=== PATIENT | male | born 1980 | race Asian ===

== ENCOUNTER 2021-04-10 09:50 | Emergency (ER) | payer OTHER, BC | END 2021-04-10 11:52 | disposition home or self-care (01) | LOC: ERS 09:50 | DX: S16.1XXA Strain of muscle, fascia and tendon at neck level, initial encounter (principal); M25.532 Pain in left wrist; M62.838 Other muscle spasm; V89.2XXA Person injured in unspecified motor-vehicle accident, traffic, initial encounter | CPT/HCPCS: 72125 ==